=== PATIENT | male | born 1990 | race American Indian/Alaskan Native ===

== ENCOUNTER 2019-10-26 15:15 | Emergency (ER) | payer SELFPAY ==
[2019-10-26] MEDS ORDERED: ACETAMINOPHEN 325 MG TAB PO ONE (16:32)
--- NOTE | 2019-10-26 16:33 | Event Note ---
ED Screening Note Date of service: 10/26/19 Time: 16:30 ED Screening Note: This is a 28 y.o. M. with myalgia, cough, sore throat, and congestion since yesterday when he got off work. This initial assessment/diagnostic orders/clinical plan/treatment(s) is/are subject to change based on patients health status, clinical progression and re- assessment by fellow clinical providers in the ED. Further treatment and workup at subsequent clinical providers discretion. Patient/guardian urged not to elope from the ED as their condition may be serious if not clinically assessed and managed. Initial orders include: Rapid flu and strep analgesics
[2019-10-26 16:38] VITALS: BP 131/69
[2019-10-26] MEDS ORDERED: IBUPROFEN 600 MG TAB PO ONE (18:17)
--- NOTE | 2019-10-26 18:18 | Emergency Department Report ---
- General Chief Complaint: Upper Respiratory Infection Stated Complaint: COUGH, FEVER Time Seen by Provider: 10/26/19 16:30 Source: patient, RN notes reviewed Mode of arrival: Ambulatory Limitations: No Limitations - History of Present Illness Initial Comments: Patient is a pleasant 28-year-old gentleman who was not to this provider previously, who states he does not have a primary care doctor and denies chronic medical conditions. Presents with 1-1.5 days of dry cough, body aches, fever. No recent travel, positive sick contacts,no sore throat, no abdominal pain, no dysuria. [place] improved after Tylenol and Motrin. Did not receive his flu vaccination. He endorses sporadic tobacco consumption. MD Complaint: fever, cough, rhinorrhea, nasal congestion -: Gradual, days(s) (1.5) Severity scale (0 -10): 1 Improves With: NSAID, other (see history of present illness) Worsens With: nothing Context: sick contacts Associated Symptoms: fever, chills, myalgias, rhinorrhea, nasal congestion, cough. denies: dysuria - Related Data Previous Rx's Medication Instructions Recorded Last Taken Type Acetaminophen [Non-Aspirin Extra 500 mg PO Q6HR PRN #30 tablet 10/26/19 Unknown Rx Strength] Ibuprofen [Motrin] 600 mg PO Q8H PRN #30 tablet 10/26/19 Unknown Rx Allergies Allergy/AdvReac Type Severity Reaction Status Date / Time No Known Allergies Allergy Unverified 10/26/19 15:26 ED Review of Systems ROS: Stated complaint: COUGH, FEVER Other details as noted in HPI Constitutional: fever Eyes: denies: eye discharge ENT: congestion Respiratory: cough Cardiovascular: denies: syncope Gastrointestinal: denies: abdominal pain Genitourinary: denies: dysuria Musculoskeletal: arthralgia, myalgia Skin: denies: lesions Neurological: denies: headache Hematological/Lymphatic: denies: easy bleeding ED Past Medical Hx - Past Medical History Previous Medical History?: No - Surgical History Past Surgical History?: No - Social History Smoking Status: Light Tobacco Smoker Substance Use Type: None - Medications Home Medications: Home Medications Medication Instructions Recorded Confirmed Last Taken Type Acetaminophen [Non-Aspirin Extra 500 mg PO Q6HR PRN #30 tablet 10/26/19 Unknown Rx Strength] Ibuprofen [Motrin] 600 mg PO Q8H PRN #30 tablet 10/26/19 Unknown Rx ED Physical Exam - General Limitations: No Limitations General appearance: alert, in no apparent distress - Head Head exam: Present: atraumatic, normocephalic - Eye Eye exam: Present: normal appearance, PERRL, EOMI. Absent: nystagmus - ENT ENT exam: Present: normal exam, normal orophraynx, mucous membranes moist, TM's normal bilaterally, normal external ear exam - Neck Neck exam: Present: normal inspection, full ROM. Absent: tenderness, meningismus, lymphadenopathy - Respiratory Respiratory exam: Present: normal lung sounds bilaterally. Absent: respiratory distress - Cardiovascular Cardiovascular Exam: Present: regular rate, normal rhythm, normal heart sounds. Absent: bradycardia, tachycardia, irregular rhythm, systolic murmur, diastolic murmur, rubs, gallop - GI/Abdominal GI/Abdominal exam: Present: soft, normal bowel sounds. Absent: distended, tenderness, guarding, rebound, rigid, pulsatile mass - Rectal Rectal exam: Present: deferred - Extremities Exam Extremities exam: Present: normal inspection, full ROM, other (2+ pulses noted in the bilateral upper and lower extremities. There is no long bony tenderness. The pelvis is stable. The muscular compartments are soft. There is no palpable cord.). Absent: calf tenderness - Back Exam Back exam: Present: normal inspection, full ROM. Absent: tenderness, CVA tenderness (R), CVA tenderness (L), paraspinal tenderness, vertebral tenderness - Neurological Exam Neurological exam: Present: alert, normal gait, other (The extraocular movements are intact bilaterally. There is no facial droop. The tongue is midline. Phonating in normal sentences. Hearing is intact grossly. Walking with a steady gait. 5/5 strength with 4 extremities. Sensation intact to light touch in 4 extremities. Appropriate thought content. GCS 15.). Absent: motor sensory deficit - Psychiatric Psychiatric exam: Present: normal affect, normal mood - Skin Skin exam: Present: warm, dry, intact, normal color. Absent: rash ED Course Vital Signs 10/26/19 10/26/19 15:26 18:27 Temperature 102.5 F H 100.0 F H Pulse Rate 106 H 90 Respiratory 16 20 Rate Blood Pressure 131/69 O2 Sat by Pulse 97 97 Oximetry ED Medical Decision Making - Lab Data Vital Signs 10/26/19 10/26/19 15:26 18:27 Temperature 102.5 F H 100.0 F H Pulse Rate 106 H 90 Respiratory 16 20 Rate Blood Pressure 131/69 O2 Sat by Pulse 97 97 Oximetry - Medical Decision Making Differential diagnosis, including not limited to: Viral syndrome Assessment and plan: 28-year-old gentleman with probable viral syndrome, possible influenza-like illness. Initially febrile and tachycardic, although these have basically resolved. On my initial examination, he is resting comfortably in his stretcher, and in no acute distress. Vital to my personal evaluation, a strep screen and flu swab were sent, and results are preliminarily negative. Given young age and lack of medical comorbidities, patient is unlikely to benefit from Tamiflu therapy, even if he does have an influenza-like illness. He is appropriate for trial of supportive care, including acetaminophen and NSAIDs, and copious fluids. Discussed this extensively with the patient, who verbalizes understanding. He is low risk for strep pharyngitis by Cent[employer] score. Critical care attestation.: If time is entered above; I have spent that time in minutes in the direct care of this critically ill patient, excluding procedure time. ED Disposition Clinical Impression: Acute febrile illness Disposition: [id number] TO HOME OR SELFCARE Is pt being admited?: No Does the pt Need Aspirin: No Condition: Stable Additional Instructions: Cultures were sent today, and results will be available in the next 3-5 days. Advance diet as tolerated, drink 4-6 cups of water per 24 hours, take the pain medications as needed and directed, and follow-up with the primary care doctor in 7-10 days. Make sure to wash hands copiously with soap and water. Please return to emergency room right away was new, worse or different symptoms, symptoms not present on the initial emergency evaluation, or new or worsening symptoms. Symptoms most likely coming him cold/virus, which typically self resolved. Recommend patient avoid consumption and secondhand exposure to tobacco, cigarettes and smoke products in general. Referrals: [facility] [Provider Group] - 7-10 days [facility] [Provider Group] - 7-10 days Forms: Work/School Release Form(ED)
== END 2019-10-26 19:04 | disposition home or self-care (01) ==
LOC: ED 15:15
DX: R05 Cough (principal); M79.18 Myalgia, other site; R50.9 Fever, unspecified; F17.200 Nicotine dependence, unspecified, uncomplicated
CPT/HCPCS: 87116; 87400; 87430; 99283